=== PATIENT | female | born 1960 | race American Indian/Alaskan Native ===

== ENCOUNTER 2018-03-03 08:32 | Day surgery (SDC) | payer MEDICARE, OTHER ==
--- NOTE | 2018-03-03 09:26 | Anesthesia Consultation ---
Anesthesia Consult and Med Hx Date of service: 03/03/18 - Airway Anesthetic Teeth Evaluation: Good (missing right lateral) ROM Head & Neck: Adequate Mental/Hyoid Distance: Adequate Mallampati Class: Class III Intubation Access Assessment: Possibly Difficult - Pulmonary Exam CTA: Yes - Cardiac Exam Cardiac Exam: RRR - Pre-Operative Health Status ASA Pre-Surgery Classification: ASA4 Proposed Anesthetic Plan: MAC - Pre-Anesthesia Comment Pre-Anesthesia Comments: Hypotension, Lupus, Rheumatoid Arthiritis, Hypercoaguable state (coumadin, last dose wednesday). c/o mld chest pressure for 2 days, EKG normal - Cardiovascular System Hx Hypertension: Yes (CHF) Hx Heart Murmur: Yes Hx Peripheral Vascular Disease: Yes (HX DVTS) - Central Nervous System Hx Back Pain: Yes - Endocrine Hx Renal Disease: Yes Hx End Stage Renal Disease: Yes (MFF) - Hematic Hx Anemia: Yes
--- NOTE | 2018-03-03 09:51 | Anesthesia Day of Surgery ---
Anesthesia Day of Surgery - Day of Surgery Patient Examined: Yes Patient H&P Reviewed: Yes Patient is NPO: Yes
[2018-03-03] MEDS ORDERED: WATER FOR IRRIG STERILE IR ONE (09:54)
[2018-03-03] MEDS ORDERED: KETALAR ONE (09:59)
[2018-03-03] MEDS ORDERED: DIPRIVAN 10 MG/ML IV ONE ×2 (09:59)
[2018-03-03] MEDS ORDERED: NACL 0.9% 1000 ML 1,000 ML IV SCH (10:00)
--- NOTE | 2018-03-03 10:42 | Post Operative Note ---
Pre-op diagnosis: dyspepsia, screening colonsocopy Post-op diagnosis: same (submucosal esophageal lesion, stricture GE junction, hiatal hernia, multiple gastric polyps, gastritis, scalloped duodenal mucosa; diverticulosis, small polyps, hemorrhoids) Findings: EGD: 1. submucosal esophageal lesion in lower esophagus 2. stricture (widely patent) at GE junction; esophagitis 3. Hiatal hernia 4. multiple small gastric fundus and body polyps 5. gastritis 6. scalloped duodenal mucosa Colonoscopy: 2 polyps removed with cold biopsy diverticulosis internal hemorrhoids Procedure: 1. EGD with biopsies 2. Colonoscopy with biopsies Anesthesia: MAC Surgeon: NEIL GARRISON Estimated blood loss: minimal Pathology: list (Jar A - duodenal mucosa, Jar B - gastritis, Jar C - gastric polyp, Jar D - esophageal submucosal lesion; Jar E - ascending colon polyp, Jar F - descending colon polyp) Specimen disposition: to lab Condition: stable Disposition: same day
--- NOTE | 2018-03-03 10:51 | Operative Report ---
Operative Report Operative Report: Esophagogastroduodenoscopy Procedure Note with Biopsies Date of procedure: 03/03/2018 Endoscopist: Brodie Mera Pre-op diagnosis: dyspepsia Post-op diagnosis: submucosal esophageal lesion, GE junction stricture, gastric polyps, gastritis, duodenitis Anesthesia: MAC Complications: No immediate complications Estimated blood loss: minimal Procedure: After consent was obtained, the patient was placed in the left lateral decubitus position. The fujinon endoscope was inserted into the patient 's mouth under direct vision, and advanced to the 2nd portion of duodenum without difficulty. The patient tolerated the procedure well. The views of the mucosa were good. Patient's vital signs were monitored continuously throughout the procedure. Findings: There was an ~1 cm submucosal lesion/nodule in the lower third of the esophagus. Biopsies were obtained. There was a widely patent, non-obstructing stricture at the GE junction. There was mild esophagitis in the lower third of the esophagus. There was a small-medium sized hiatal hernia. Multiple small polyps in the fundus and body of the stomach. Biopsy was obtained. Moderately erythematous mucosa in the antrum of the stomach. Biopsies were obtained to rule out H. pylori. Scalloped appearing mucosa in the duodenum (2nd portion). There was mild erythematous mucosa in the duodenal bulb. Biopsies were obtained. Impression: 1. Submucosal esophageal lesion. Biopsied 2. Esophagitis 3. Stricture at GE junction (widely patent) 4. Gastric polyps (suspect fundic gland polyps). Biopsied 5. Gastritis. Biopsied 6. Duodenitis. Biopsied. Recommendations: -follow-up path -anti-acid medication daily for time being -avoid nsaid's -if dysphagia occurs, dilatation prn can be done -colonoscopy to follow
--- NOTE | 2018-03-03 10:53 | Operative Report ---
Operative Report Operative Report: Colonoscopy Procedure Note with Biopsies Date of procedure: 03/03/2018 Endoscopist: Brodie Mera Pre-op diagnosis: screening colonoscopy Post-op diagnosis: 2 small colon polyps, grace-diverticulosis, internal hemorrhoids Anesthesia: MAC Complications: No immediate complications Estimated blood loss: minimal Procedure: After consent was obtained, the patient was placed in the left lateral decubitus position. The fujinon colonoscope was inserted into the patient's rectum under direct vision, and advanced to the cecum without difficulty. The patient tolerated the procedure well. The views of the mucosa were fair. The quality of prep was fair. The patient's vital signs were monitored continuously throughout the procedure. Findings: There was one small sessile polyp (< 5 mm) in the ascending colon. The polyp was removed and retrieved with cold forceps biopsy. There was one small (< 5mm) sessile polyp in the descending colon. The polyp was removed and retrieved with cold forceps biopsy. There were multiple small and large diverticula throughout the colon. Internal hemorrhoids were visualized on retroflexion view. Impression: 1. Two small colon polyps removed as above 2. Grace-diverticulosis 3. Internal hemorrhoids Recommendations: -high fiber diet daily -follow-up pathology -repeat colonoscopy in 3-5 years based on pathology results -return to GI clinic as scheduled
[2018-03-03 11:09] VITALS: BP 99/58
[2018-03-03] MEDS ORDERED: ePHEDrine SULFATE ONE (11:37)
--- NOTE | 2018-03-03 11:40 | Post Anesthesia Evaluation ---
- Post Anesthesia Evaluation Patient Participated: Yes Airway Patent: Yes Stable Respiratory Function: Yes Nausea/Vomiting: No Temp > 96.8F: Yes Pain Manageable: Yes Adequeate Hydration: Yes Anesthesia Complications: No
== END 2018-03-03 08:33 | disposition home or self-care (01) ==
LOC: GIO 08:32
PROVIDERS: ATTEND Internal Medicine Gastroenterology
DX: K57.30 Diverticulosis of large intestine without perforation or abscess without bleeding (principal); K59.00 Constipation, unspecified; K44.9 Diaphragmatic hernia without obstruction or gangrene; K21.0 Gastro-esophageal reflux disease with esophagitis; K22.2 Esophageal obstruction; I50.9 Heart failure, unspecified; K29.80 Duodenitis without bleeding; K64.8 Other hemorrhoids; I13.2 Hypertensive heart and chronic kidney disease with heart failure and with stage 5 chronic kidney disease, or end stage renal disease; N18.6 End stage renal disease; I73.9 Peripheral vascular disease, unspecified; M19.90 Unspecified osteoarthritis, unspecified site; M06.9 Rheumatoid arthritis, unspecified; M32.9 Systemic lupus erythematosus, unspecified; Z86.718 Personal history of other venous thrombosis and embolism; Z79.01 Long term (current) use of anticoagulants; Z88.8 Allergy status to other drugs, medicaments and biological substances; K63.5 Polyp of colon
CPT/HCPCS: 43239; 45380; 82803; 88305; 88342; 93005; 93010; J2704; J7030